=== PATIENT | female | born 1990 | race Caucasian/White ===

== ENCOUNTER 2017-07-20 17:59 | Outpatient (CLI) | payer OTHER | END 2017-07-20 22:54 | disposition home or self-care (01) | LOC: MLB 17:59 | PROVIDERS: ATTEND Family Medicine | DX: K58.9 Irritable bowel syndrome, unspecified (principal); Z86.19 Personal history of other infectious and parasitic diseases | CPT/HCPCS: 36415 ==

== ENCOUNTER 2017-08-02 18:03 | Outpatient (CLI) | payer OTHER | END 2017-08-02 20:57 | disposition home or self-care (01) | LOC: MLB 18:03 | PROVIDERS: ATTEND Student in an Organized Health Care Education/Training Program | DX: Z11.3 Encounter for screening for infections with a predominantly sexual mode of transmission (principal); K58.2 Mixed irritable bowel syndrome | CPT/HCPCS: 36415; 86702; 86704; 86803; 87340 ==

== ENCOUNTER 2017-08-07 09:16 | Outpatient (CLI) | payer OTHER ==
[2017-08-07 09:38] LABS: BASOPHILS # (AUTO) 0.2 K/uL (0.00-0.22); BASOPHILS % (AUTO) 3.5 % (0.0-2.0); EOSINOPHILS # (AUTO) 0.1 K/uL (0-0.4); EOSINOPHILS % (AUTO) 1.2 % (0.0-4.0); HEMATOCRIT 40.3 % (36-48); HEMOGLOBIN 13.3 g/dL (12.0-16.0); LYMPHOCYTES # (AUTO) 1.5 K/uL (2.5-16.5); LYMPHOCYTES % (AUTO) 29.5 % (20.5-51.1); MEAN CORPUSCULAR HEMOGLOBIN 29 pg (27-31); MEAN CORPUSCULAR HGB CONC 33 g/dL (33-37); MEAN CORPUSCULAR VOLUME 87 fL (80-94); MONOCYTES # (AUTO) 0.5 K/uL (0.8-1.0); MONOCYTES % (AUTO) 9.1 % (1.7-9.3); NEUTROPHILS # (AUTO) 2.8 K/uL (1.8-7.7); NEUTROPHILS % (AUTO) 56.7 % (42.2-75.2); PLATELET COUNT (AUTO) 298 K/uL (140-450); RED BLOOD CELL COUNT(AUTO) 4.64 MIL/uL (4.20-5.40); RED CELL DISTRIBUTION WIDTH 13.8 % (11.6-13.7); WHITE BLOOD COUNT (AUTO) 5.1 K/uL (4.8-10.8)
[2017-08-07 10:04] LABS: ANION GAP 12.1 (8-16); CARBON DIOXIDE 29.6 mmol/L (21-32); CREATININE 0.8 mg/dL (0.6-1.3); POTASSIUM 3.7 mmol/L (3.5-5.1); TOTAL BILIRUBIN 0.6 mg/dL (0.0-1.0)
[2017-08-07 10:05] LABS: ALBUMIN 3.9 g/dL (3.4-5.0)
== END 2017-08-07 20:40 | disposition home or self-care (01) ==
LOC: MLB 09:16
DX: K58.2 Mixed irritable bowel syndrome (principal)
CPT/HCPCS: 36415; 80053; 82150; 83690; 85025

== ENCOUNTER 2018-01-09 17:31 | Outpatient (CLI) | payer OTHER ==
[2018-01-09 20:40] LABS: ALBUMIN 3.9 g/dL (3.4-5.0); ANION GAP 9.5 (8-16); CREATININE 0.8 mg/dL (0.6-1.3); PHOSPHORUS 3.5 mg/dL (2.5-4.9); POTASSIUM 3.5 mmol/L (3.5-5.1)
[2018-01-11 09:07] LABS: HEPATITIS B SURFACE ANTIBODY Non Reactive (.); HEPATITIS B SURFACE ANTIGEN Negative (Negative)
[2018-01-12 06:20] LABS: CHLAMYDIA TRACHOMATIS AMP DNA Negative (Negative)
[2018-01-13 01:07] LABS: FERRITIN 8 ng/mL (15-150)
== END 2018-01-09 20:27 | disposition home or self-care (01) ==
LOC: MLB 17:31
DX: Z11.3 Encounter for screening for infections with a predominantly sexual mode of transmission (principal)
CPT/HCPCS: 36415; 82040; 82435; 82565; 82728; 82947; 84100; 84132; 84295; 84450; 84520; 86706; 87340; 87491